=== PATIENT | male | born 1980 | race Caucasian/White ===

== ENCOUNTER 2016-06-30 00:53 | Emergency (ER) | payer MEDICAID, OTHER ==
[~2016-06-30] VITALS: Ht 182.9 cm; Wt 77.1 kg
[2016-06-30] MEDS ORDERED: LEXA1TAB PO (01:03)
[2016-06-30] MEDS ORDERED: HYDR-3713 PO ×2 (06:08→06:12)
[2016-06-30] MEDS ORDERED: LOTR1CRE TOP (06:08)
[2016-06-30] MEDS ORDERED: DOXY100C PO (06:08)
[2016-06-30] MEDS ORDERED: DOXYCYCLINE HYCLATE 100 MG TAB PO ONE (06:15)
[2016-06-30] MEDS ORDERED: NORCO, ANEXSIA 5/325MG TABLET (HYDROcodone/ACETAMINOPHEN) PO ONE (06:15)
[2016-06-30 06:33] VITALS: BP 111/68
== END 2016-06-30 06:34 | disposition home or self-care (01) ==
LOC: M ED 02:32
DX: L03.314 Cellulitis of groin (principal); B35.6 Tinea cruris; F17.200 Nicotine dependence, unspecified, uncomplicated; Z87.442 Personal history of urinary calculi; Z88.0 Allergy status to penicillin; Z88.2 Allergy status to sulfonamides; Z79.899 Other long term (current) drug therapy

== ENCOUNTER 2019-08-31 20:05 | Emergency (ER) | payer OTHER ==
[~2019-08-31] VITALS: Ht 185.4 cm; Wt 81.0 kg
[~2019-08-31 20:05] MED LIST: DOXY100C PO; HYDR-3713 PO; LEXA1TAB PO; LOTR1CRE12 TOP
[2019-08-31] MEDS ORDERED: FLUO20CA20 PO (20:12)
[2019-08-31] MEDS ORDERED: BUPR75TA5 PO (20:12)
[2019-08-31 21:35] LABS: BASO % 0.2 % (0.0-1.0); EOS # 0.1 10^3/uL (0.0-0.5); EOS % 0.7 % (0.0-3.0); HEMATOCRIT 48.6 % (42.0-52.0); HEMOGLOBIN 15.9 g/dl (13.5-17.5); LYMPH # 2.2 10^3/uL (1.5-5.0); LYMPH % 19.7 % (24.0-44.0); MEAN CORPUSCULAR HEMOGLOBIN 30.5 pg (27.0-33.0); MEAN CORPUSCULAR HGB CONC 32.7 g/dl (32.0-36.5); MEAN CORPUSCULAR VOLUME 93.1 fl (80.0-96.0); MONO # 0.9 10^3/uL (0.0-0.8); MONO % 7.6 % (0.0-5.0); NEUTROPHILS # 8.1 10^3/uL (1.5-8.5); NEUTROPHILS % 71.4 % (36.0-66.0); PLATELET COUNT, AUTOMATED 216 10^3/uL (150-450); RED BLOOD COUNT 5.22 10^6/uL (4.30-6.10); WHITE BLOOD COUNT 11.3 10^3/uL (4.0-10.0)
[2019-08-31 22:05] LABS: ALBUMIN 3.7 GM/DL (3.2-5.2); ALT/SGPT 44 U/L (12-78); BILIRUBIN,DIRECT < 0.1 MG/DL (0.0-0.2); BILIRUBIN,TOTAL 0.2 MG/DL (0.2-1.0); BLOOD UREA NITROGEN 7 MG/DL (7-18); CALCIUM LEVEL 8.7 MG/DL (8.5-10.1); CARBON DIOXIDE LEVEL 29 MEQ/L (21-32); CHLORIDE LEVEL 113 MEQ/L (98-107); CREATININE FOR GFR 1.07 MG/DL (0.70-1.30); GLOMERULAR FILTRATION RATE > 60.0 (>60); GLUCOSE, FASTING 74 MG/DL (70-100); LIPASE 68 U/L (73-393); NT-PRO BNP 26 PG/ML (<125); SODIUM LEVEL 143 MEQ/L (136-145); THYROID STIMULATING HORMONE 0.865 uIU/ML (0.358-3.740); TOTAL PROTEIN 6.4 GM/DL (6.4-8.2)
[2019-08-31] MEDS ORDERED: GI COCKTAIL 50ML BTL(HYOSCYAMINE/MAALOX/LIDOCAINE VISCOUS)(1:3:1) PO ONE (22:30)
[2019-08-31] MEDS ORDERED: NAPR-837 PO (23:13)
[2019-08-31 23:15] VITALS: BP 112/72
[2019-08-31] MEDS ORDERED: NAPROXEN 250 MG TAB PO ONE (23:15)
--- NOTE | 2019-09-01 07:59 | ECGEPIP ---
[facility] - ED Test Date: 2019-08-31 Pat Name: ZEKE LAY SR Department: Room: - Gender: Male Adult Probation Officer: hansa : 1980 Requested By: PEDRO Gresham Order Number: [id number] Reading MD: Pedro Erickson Measurements Intervals [place] Rate: 60 P: 40 SD: 159 QRS: 61 QRSD: 93 T: -28 QT: 411 QTc: 413 Interpretive Statements SINUS RHYTHM NONSPECIFIC ST & T-WAVE ABNORMALITY Comparison tracing not on file Wandering baseline Electronically Signed on 09-01-2019 7:59:33 EDT by Pedro Erickson
--- NOTE | 2019-09-01 08:03 | REP ---
Clinical: Acute chest pain . Comparison: None . Findings: The mediastinum and cardiac silhouette are stable and within normal limits for portable technique. The lung burt are clear without acute consolidation, effusion, or pneumothorax. Skeletal structures are intact. Impression: No acute cardiopulmonary process appreciated. Electronically Signed by Rg Bhardwaj MD 09/01/2019 07:54 A
== END 2019-08-31 23:30 | disposition home or self-care (01) ==
LOC: M ED 20:05
DX: R07.9 Chest pain, unspecified (principal); R06.02 Shortness of breath; F33.9 Major depressive disorder, recurrent, unspecified; Z79.899 Other long term (current) drug therapy; Z88.0 Allergy status to penicillin; Z88.1 Allergy status to other antibiotic agents; Z88.2 Allergy status to sulfonamides; F17.210 Nicotine dependence, cigarettes, uncomplicated